=== PATIENT | male | born 1955 | race Caucasian/White ===

== ENCOUNTER 2017-06-24 20:20 | Emergency (ER) | payer SELFPAY ==
[~2017-06-24] VITALS: Ht 182.9 cm; Wt 77.1 kg
[2017-06-24 20:28] VITALS: BP 130/77
--- NOTE | 2017-06-24 21:41 | NUR ---
AMBULATD TO ER BED 5 FROM LOBBY Addendum: 06/24/17 at 2141 by [facility] AMBULATED TO ER BED 5 FROM ER LOBBY
--- NOTE | 2017-06-24 22:10 | NUR ---
PT AMB W/O ASST TO BRP, NO LIMP NOTED AT THIS TIME. UA DONE.
--- NOTE | 2017-06-24 22:26 | NUR ---
Patient being evaluated by physician at bedside.
--- NOTE | 2017-06-24 23:00 | NUR ---
RESULTS BACK NOTED BY ERMD AND FOR D/C.
[2017-06-24 23:12] VITALS: BP 119/81
== END 2017-06-24 23:13 | disposition home or self-care (01) ==
LOC: MED 20:20
DX: M25.562 Pain in left knee (principal)
CPT/HCPCS: 73562; 81002; 99284